=== PATIENT | female | born 1945 | race Caucasian/White ===

== ENCOUNTER 2018-10-24 14:11 | Outpatient (REF) | payer MEDICARE, OTHER, SELFPAY ==
--- NOTE | 2018-10-24 13:45 | SKI_PTH ---
PATIENT: MAGGIE DUFFY LOC: [facility] U#:[id number] AGE/SX: 73/F ROOM: RE10/24/[address]: Israel Larry MD : 1945 BED: DIS: 10/24/2018 SPEC #: [id number] RECD: 10/24/18 18:47 STATUS: FÁTIMA REQ #: [id number] SEBASTIEN: 10/24/18 13:[address]: Israel Larry DEPT: Surgical Specimen RECD BY: Vanessa Durham Tissues: 1 - SKIN BIOPSY(SHAVE/PUNCH) Procedures: SKIN LEVEL 4 Comments: [id number]
== END 2018-10-24 14:31 ==
LOC: LBN 14:11
PROVIDERS: PCP Family Medicine; Visit Provider Family Medicine
DX: B07.9 Viral wart, unspecified (principal); L85.8 Other specified epidermal thickening
CPT/HCPCS: 88305

== ENCOUNTER → 2019-08-19 10:27 | Outpatient (BNVA) | payer MEDICARE, OTHER, SELFPAY | PROVIDERS: PCP Family Medicine; Referring Provider Family Medicine; Visit Provider Orthopaedic Surgery | DX: M25.532 Pain in left wrist (principal); M10.9 Gout, unspecified; R20.0 Anesthesia of skin | CPT/HCPCS: 99201; 99202 ==

== ENCOUNTER → 2019-08-26 09:57 | Outpatient (BNVA) | payer MEDICARE, OTHER, SELFPAY | PROVIDERS: PCP Family Medicine; Referring Provider Family Medicine; Visit Provider Nurse Practitioner Adult Health | DX: G56.22 Lesion of ulnar nerve, left upper limb (principal); G56.03 Carpal tunnel syndrome, bilateral upper limbs; G56.23 Lesion of ulnar nerve, bilateral upper limbs | CPT/HCPCS: 95911; 99203; 99214 ==

== ENCOUNTER 2021-02-03 14:48 | Outpatient (REF) | payer MEDICARE, OTHER, SELFPAY ==
[2021-02-03 13:47] LABS: Calculated LDL 147 mg/dL (<100); Cholesterol 262 mg/dL (<200); HDL Cholesterol 87 mg/dL (40-60); Triglyceride 144 mg/dL (<150)
[2021-02-06 14:09] LABS: ANA Interpretation Positive (Negative); ANA Titer Pattern 1:80 Homogeneous
== END 2021-02-03 14:49 | disposition home or self-care (01) ==
LOC: LBN 14:48
PROVIDERS: PCP Family Medicine; Visit Provider Emergency Medicine
DX: E78.5 Hyperlipidemia, unspecified (principal); M25.59 Pain in other specified joint; M35.00 Sjogren syndrome, unspecified
CPT/HCPCS: 80061; 86038